=== PATIENT | female | born 1980 | race African-American/Black ===

== ENCOUNTER 2023-03-30 17:24 | Emergency (ER) | payer OTHER ==
[~2023-03-30] VITALS: Ht 167.6 cm; Wt 81.6 kg
[2023-03-30 17:35] VITALS: BP 130/88; PULSE 69; RESP 15; TEMP 98; O2SAT 100
== END 2023-03-30 18:58 | disposition home or self-care (01) ==
LOC: MED 17:24
DX: M54.50 Low back pain, unspecified (principal); R10.2 Pelvic and perineal pain; Z90.710 Acquired absence of both cervix and uterus; Z98.890 Other specified postprocedural states; Z88.5 Allergy status to narcotic agent
CPT/HCPCS: 81002; 81025; 99282